=== PATIENT | male | born 1970 ===

== ENCOUNTER 2021-01-18 16:49 | Emergency (ER) | payer OTHER ==
[~2021-01-18] VITALS: Ht 177.8 cm; Wt 98.0 kg
[2021-01-18] MEDS ORDERED: ONDANSETRON 2MG/ML, 2ML IVPush ONE (17:30)
[2021-01-18] MEDS ORDERED: ONDANSETRON 2MG/ML, 2ML ONE (17:32)
[2021-01-18] MEDS ORDERED: MORPHINE SULFATE 4 MG/ML, 1ML ONE ×2 (17:32→19:16)
[2021-01-18 17:56] LABS: BASOPHILS % (AUTO) 0 % (0-1); EOSINOPHILS % (AUTO) 1 % (1-7); LYMPHOCYTES % (AUTO) 5 % (22-44); MEAN CORPUSCULAR HEMOGLOBIN 28.5 pg (27.5-34.5); MEAN CORPUSCULAR HGB CONC 32.6 g/dL (33.2-36.2); MEAN PLATELET VOLUME 7.9 fL (7.4-10.4); MONOCYTES % (AUTO) 7 % (2-9); NEUTROPHILS % (AUTO) 87 % (42-75); PLATELET COUNT 267 x10^3/uL (130-400); RED BLOOD COUNT 4.88 x10^6/uL (4.38-5.82); RED CELL DISTRIBUTION WIDTH 14.9 % (9.4-14.8)
[2021-01-18] MEDS: MORPHINE SULFATE 4 MG/ML, 1ML IVPush PRN ×2 (17:56→19:27)
[2021-01-18] MEDS ORDERED: ATOR40TA78 PO (18:05)
[2021-01-18] MEDS ORDERED: LISI2.5T PO (18:05)
[2021-01-18] MEDS ORDERED: SEMA0.25 SQ (18:05)
[2021-01-18] MEDS ORDERED: EMPA25TA PO (18:05)
[2021-01-18] MEDS ORDERED: ALLO100T30 PO (18:05)
[2021-01-18] MEDS ORDERED: METF500T17 PO (18:05)
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
[2021-01-18 18:06] LABS: ALBUMIN 3.8 g/dL (3.4-5.0); ANION GAP 8 mmol/L (5-15); CALCIUM 8.6 mg/dL (8.5-10.1); CHLORIDE 112 mmol/L (98-107)
[2021-01-18 18:09] LABS: ALANINE AMINOTRANSFERASE 61 U/L (12-78); ALKALINE PHOSPHATASE 91 U/L (45-117); BILIRUBIN,TOTAL 1.3 mg/dL (0.2-1.0); CREATININE 1.75 mg/dL (0.7-1.3); TOTAL PROTEIN 6.7 g/dL (6.4-8.2)
[2021-01-18] MEDS ORDERED: OMNIPAQUE 350 MG/ML, 100ML BOTTLE ONE (18:45)
--- NOTE | 2021-01-18 18:48 | NUR ---
report to samuel kaur. as
--- NOTE | 2021-01-18 18:49 | NUR ---
REPORT RECEIVED FROM JONI ZHAO
--- NOTE | 2021-01-18 18:49 | NUR ---
PT RETRUEND FROM IMAGING
[2021-01-18] MEDS ORDERED: SODIUM CHLORIDE 0.9%, 500ML IVBOLUS ONE (19:30)
[2021-01-18] MEDS ORDERED: KETOROLAC 30 MG/1 ML ONE (19:37)
[2021-01-18] MEDS ORDERED: KETOROLAC 15 MG/1ML IVPush ONE (20:00)
--- NOTE | 2021-01-18 20:41 | NUR ---
task rn, pt able to get out of gurney independently and ambulate in hallways without assitance. pt states "the morphine is kicking in". pt back in bed, requesting snacks and water, MD vásquez, snacks and water given.
[2021-01-18] MEDS ORDERED: LIDODERM 5% PATCH TD ONE ×2 (21:30→21:58)
[2021-01-18 22:21] VITALS: BP 111/59
--- NOTE | 2021-01-18 22:21 | NUR ---
Patient given discharge instructions and they have confirmed that they understand the instructions. Patient ambulatory with steady gait. NAD, all questions answered appropriately, denies additional needs at this time. No personal belongings left in room after discharge.
== END 2021-01-18 22:23 | disposition home or self-care (01) ==
LOC: ED 20:50
DX: S22.42XA Multiple fractures of ribs, left side, initial encounter for closed fracture (principal); R91.1 Solitary pulmonary nodule; M25.512 Pain in left shoulder; R51.9 Headache, unspecified; H57.89 Other specified disorders of eye and adnexa; W22.8XXA Striking against or struck by other objects, initial encounter; Y93.89 Activity, other specified; Y92.009 Unspecified place in unspecified non-institutional (private) residence as the place of occurrence of the external cause; Y99.8 Other external cause status
CPT/HCPCS: 36415; 70450; 71250; 74177; 80053; 83690; 85025; 96361; 96374; 96375; 96376; 99285; J1885; J2270; J2405; J7040; Q9967